=== PATIENT | female | born 1980 | race Caucasian/White ===

== ENCOUNTER 2020-10-01 19:59 | Emergency (ER) | payer BC ==
[~2020-10-01 19:59] MED LIST: NORCO 7.5-3251 EACH PO; VITAMIN C500 M1 PO
[2020-10-01 23:02] LABS: HEMOGLOBIN 14.1 gm/dl (12.3-15.3); RED BLOOD COUNT 4.48 M/UL (4.00-5.10); WHITE BLOOD COUNT 9.8 K/UL (4.5-11.0)
[2020-10-01 23:24] LABS: BUN/CREATININE RATIO 16 (0-10)
== END 2020-10-02 01:40 | disposition home or self-care (01) ==
LOC: ER1 19:59
PROVIDERS: Physician Assistant
DX: R07.89 Other chest pain (principal); F17.210 Nicotine dependence, cigarettes, uncomplicated; Z90.49 Acquired absence of other specified parts of digestive tract
CPT/HCPCS: 71045; 80053; 82550; 82553; 83874; 84484; 85025; 85379; 93005; 99285